=== PATIENT | female | born 1990 | race African-American/Black ===

== ENCOUNTER 2016-09-01 12:34 | Emergency (ER) | payer OTHER ==
[~2016-09-01] VITALS: Ht 162.6 cm; Wt 48.1 kg
[~2016-09-01 12:34] MED LIST: ACETAMINOPHEN-1 EAC1 ORAL; CYCLOBENZAPRINE10 MG ORAL; IBUPROFEN600 MG ORAL; NKM; NORCO 5-325 TA1 EACH ORAL
[2016-09-01] MEDS ORDERED: Dicyclomine HCl 10mg/5ml oral soln ORAL ONE (13:30)
[2016-09-01] MEDS ORDERED: Lidocaine 2% Visc 15ml soln ORAL ONE (13:30)
[2016-09-01] MEDS ORDERED: Mylanta II UD 30ml ORAL ONE (13:30)
[2016-09-01] MEDS ORDERED: ZOFRAN4 M3 ORAL (14:32)
[2016-09-01 14:55] VITALS: BP 100/60
[2016-09-01 14:56] VITALS: BP 100/60
--- NOTE | 2016-09-01 16:50 | Emergency Room Report ---
History of Present Illness General Chief Complaint: General Complaint Source: Patient Present Illness HPI The patient is a 25 old female presenting for nausea and vomiting which began 2 days prior. The patient states that she was eating at a restaurant and noticed a bug in her food which she already ingested. She has been having multiple episodes of vomiting since then. She denies any diarrhea or abdominal pain. She denies any other symptoms including F, chills, rash, SOB, CP, dizziness, MADDOX Allergies: Coded Allergies: No Known Allergies (Unverified , 01/17/15) Patient History Past Medical History: see triage record Pertinent Family History: none Last Menstrual Period: One week ago Now: No Reviewed Nursing Documentation: PMH: Agreed, PSxH: Agreed Nursing Documentation-PMH Past Medical History: No Stated History Review of Systems All Other Systems: negative except mentioned in HPI Physical Exam Vital Signs Date Time Temp Pulse Resp B/P Pulse Ox O2 Delivery O2 Flow Rate FiO2 09/01/16 12:45 98.4 78 16 96/57 100 Room Air Sp02 EP Interpretation: reviewed, normal General Appearance: no apparent distress, alert, GCS 15, non-toxic Head: normocephalic, atraumatic Eyes: bilateral eye PERRL, bilateral eye normal inspection ENT: hearing grossly normal, normal pharynx, no angioedema, normal voice Neck: full range of motion, supple/symm/no masses Gastrointestinal: normal bowel sounds, non tender, soft, non-distended, no guarding, no rebound Musculoskeletal: back normal, gait/station normal, normal range of motion, non- tender Neurologic: alert, oriented x3, responsive, motor strength/tone normal, sensory intact, speech normal Psychiatric: judgement/insight normal, memory normal, mood/affect normal, no suicidal/homicidal ideation Skin: normal color, no rash, warm/dry, well hydrated Lymphatic: no adenopathy Medical Decision Making PA Attestation Dr. Prieto is my supervising physician. Patient management was discussed with my supervising physician Diagnostic Impression: Primary Impression: Gastroenteritis ER Course The patient is a 25 old female presenting for nausea and vomiting which began 2 days prior Differential diagnoses considered but not limited to: Gastroenteritis, GERD, PE: Vitals WNL. NAD. Abdomen: Normal appearance. Non distended. No ecchymosis. normal BS. no TTP. No McBurney point tenderness. No guarding. No CVA tenderness UA: perg neg The patient is given a GI cocktail and Zofran and is feeling better She will be discharged home with a prescription for Zofran and will follow up with PMD. ER precautions given Laboratory Tests Test 09/01/16 14:09 Urine HCG, Qualitative Negative Lab Results Impression preg: neg Last Vital Signs Date Time Temp Pulse Resp B/P Pulse Ox O2 Delivery O2 Flow Rate FiO2 09/01/16 14:56 98.1 73 18 100/60 98 Room Air Status: improved Disposition: HOME, SELF-CARE Condition: Improved Scripts Ondansetron* (ZOFRAN*) 4 Mg Tablet 4 MG ORAL Q6H Y for Nausea & Vomiting, #15 TAB Prov: CECILIA SANDERSON 09/01/16 Patient Instructions: Nausea and Vomiting, Adult Additional Instructions: I discussed my findings with the patient. All questions and concerns have been answered. Treatment and medication compliance have been addressed. I advised the patient that they need to follow up with PMD in 3-5 days. Return to ED if symptoms worsen, new symptoms arise, or if needed for any reason. Patient verbalized understanding of discharge instructions. CECILIA SANDERSON September 01, 2016 16:50
== END 2016-09-01 14:56 | disposition home or self-care (01) ==
LOC: EMR 13:54
DX: K52.9 Noninfective gastroenteritis and colitis, unspecified (principal)
CPT/HCPCS: 81025; 99283

== ENCOUNTER 2016-10-18 01:57 | Emergency (ER) | payer OTHER ==
[~2016-10-18] VITALS: Ht 162.6 cm; Wt 48.1 kg
[~2016-10-18 01:57] MED LIST changes: +ZOFRAN4 M3 ORAL
[2016-10-18] MEDS ORDERED: Oxycodone/Acetaminophen 5-325 ORAL ONE (02:45)
[2016-10-18] MEDS ORDERED: ACETAMINOPHEN-1 EAC1 ORAL (03:17)
[2016-10-18 03:25] VITALS: BP 130/91
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
== END 2016-10-18 03:29 | disposition home or self-care (01) ==
LOC: EMR 02:45
DX: S20.212A Contusion of left front wall of thorax, initial encounter (principal); W50.0XXA Accidental hit or strike by another person, initial encounter; Y92.9 Unspecified place or not applicable
CPT/HCPCS: 99283